=== PATIENT | male | born 2000 | race Two or more races ===

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

== ENCOUNTER 2023-01-05 09:47 | Emergency (ER) | payer OTHER ==
[~2023-01-05] VITALS: Ht 177.8 cm; Wt 98.0 kg
== END 2023-01-05 14:01 | disposition home or self-care (01) ==
LOC: ER 09:47
DX: K29.70 Gastritis, unspecified, without bleeding (principal)